=== PATIENT | male | born 1970 | race Caucasian/White ===

== ENCOUNTER 2017-07-25 12:45 | Emergency (ER) | payer MEDICAID, OTHER ==
--- NOTE | 2017-07-25 13:04 | ED Physician Documentation ---
Upper Respiratory Symptoms - HISTORIAN Historian: patient - HPI Chief Complaint: Upper Respiratory Symptoms Associated Symptoms: runny nose, sinus pain, sinus drainage, productive cough. denies: fever, chills, sore throat, hay fever, chest pain, bloody cough, shortness of breath, hurts to breathe Further Comments: yes (47 year old male patient presents with complaint of sinus pressure, congestion, runny nose - yellow/green discharge. States he took augmentin at the beginning of June, symptoms became better after antibiotic but did not completely resolve. 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.) - ROS CONST/EYES: denies: weakness, eye redness, eye itching CVS/RESP: denies: chest pain, shortness of breath, palpitations LYMPH: denies: leg swelling, rash, swollen glands, ankle swelling GI/: none NEURO/PSYCH: denies: fainting, dizziness, confusion, anxiety MS/SKIN: denies: joint pain, muscle aches, rash - PAST HX Lung Disease: COPD Allergies/Adverse Reactions: Allergies Allergy/AdvReac Type Severity Reaction Status Date / Time acetaminophen Allergy Verified 07/25/17 13:00 [From Darvocet-N 100] bee venom (honey bee) Allergy Verified 07/25/17 13:00 propoxyphene napsylate Allergy Verified 07/25/17 13:00 [From Darvocet-N 100] Home Medications: Ambulatory Orders Medication Instructions Recorded Benzonatate [Tessalon Perles] 200 mg PO TID PRN #30 capsule 07/25/17 Levofloxacin [Levaquin] 500 mg PO DAILY #10 tablet 07/25/17 Prednisone 40 mg PO DAILY #16 tablet 07/25/17 - SOCIAL HX Smoking History: cigarettes (3.5-4 ppd) Drug Use: methamphetamines (history of abuse) - FAMILY HX Family History: denies: none - REVIEWED ASSESSMENTS Nursing Assessment Reviewed: Yes Vitals Reviewed: Yes Upper Respiratory Symptoms - EXAM General Appearance: mild distress EENT: eyes nml inspection, pain over sinuses, frontal, maxillary, ethmoid, mucosal edema, purulent nasal drainage, pharyngeal erythema Respiratory: no resp. distress, breath sounds nml, no pain on inspiration, speaks full sentences, no pleuritic chest pain Abdomen: non-tender, no organomegaly, nml bowel sounds, no distention CVS: reg rate & rhythm, heart sounds normal, equal pulses, no murmur, no gallop , PMI nml, no JVD, no friction rub, 24 Skin: color nml, no rash, warm,dry Extremities: non-tender, normal range of motion, no evidence of injury, no edema , J, SALES OFFICE MANAGER Neuro/Psych: oriented x3, neuro intact, mood/affect nml, CN's nml as tested Discharge Clincal Impression: Acute pansinusitis Qualifiers: Recurrence: recurrent Qualified Code(s): J01.41 - Acute recurrent pansinusitis Prescriptions: Benzonatate [Tessalon Perles] 200 mg PO TID PRN #30 capsule PRN Reason: Cough Levofloxacin [Levaquin] 500 mg PO DAILY #10 tablet Prednisone 40 mg PO DAILY #16 tablet 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 Treat your symptoms with over the counter medication. You may want to try Vicks rub on your chest and/or feet Cough drops as needed for cough and sore throat. Increase your fluid intake juices, hot tea, non-caffeinated beverages Use a humidifier in the room where you sleep. You can also sit in a steam filled bathroom 1-2 times a day. Tylenol or Ibuprofen as needed for fever, pain and body aches. Start daily allergy medication such as Claritin, Yocasta or Zyrtec. Start a daily nasal spray such as Flonase or Nasonex You may benefit from the use of a netti pot follow package instructions. See your primary care doctor after you have completed your antibiotic if you symptoms have not resolved. Many times it takes multiple rounds of antibiotics to resolve a sinus infection. Condition: Stable Disposition: 01 HOME, SELF-CARE Decision to Admit: NO Decision Time: 13:19
[2017-07-25 13:15] VITALS: BP 142/84
== END 2017-07-25 13:29 | disposition home or self-care (01) ==
LOC: ED 12:45
DX: J01.41 Acute recurrent pansinusitis (principal)
CPT/HCPCS: 99282